=== PATIENT | female | born 1935 | race Caucasian/White ===

== ENCOUNTER 2022-04-12 16:03 | Emergency (ER) | payer OTHER ==
[~2022-04-12] VITALS: Ht 157.5 cm; Wt 76.2 kg
[2022-04-12 16:33] VITALS: BP 140/72
== END 2022-04-12 20:10 | disposition home or self-care (01) ==
LOC: ER 16:03
DX: M79.604 Pain in right leg (principal); I10 Essential (primary) hypertension; Z90.49 Acquired absence of other specified parts of digestive tract
CPT/HCPCS: 93971